=== PATIENT | male | born 1990 | race Caucasian/White ===

== ENCOUNTER 2022-04-18 17:40 | Emergency (ER) | payer MEDICAID, OTHER ==
[~2022-04-18] VITALS: Ht 165.1 cm; Wt 104.3 kg
[2022-04-18 19:36] VITALS: BP 117/76
[2022-04-18] MEDS ORDERED: FAMOTIDINE 20 MG TAB PO ONE (19:45)
[2022-04-18] MEDS ORDERED: KETOROLAC TROMETH 30 MG/ML 1ML VIAL IM ONE (19:45)
== END 2022-04-18 23:26 | disposition home or self-care (01) ==
LOC: ER 17:40
DX: S93.402A Sprain of unspecified ligament of left ankle, initial encounter (principal); W18.39XA Other fall on same level, initial encounter; Y93.89 Activity, other specified; Y92.89 Other specified places as the place of occurrence of the external cause; Y99.8 Other external cause status
CPT/HCPCS: 73610; 99283; J1885

== ENCOUNTER 2023-02-10 09:17 | Emergency (ER) | payer SELFPAY ==
[~2023-02-10] VITALS: Ht 165.1 cm; Wt 105.0 kg
[2023-02-10 09:45] LABS: Basophils # (auto) 0 10 ^3/uL (0-0.2); Basophils % (auto) 0.2 % (0.0-2.0); Eosinophils # (auto) 0.1 10 ^3/uL (0-0.8); Eosinophils % (auto) 0.9 % (0.0-7.0); Hematocrit 47.1 % (41.0-53.0); Lymphocytes # (auto) 1.1 10 ^3/uL (0.4-5.4); Lymphocytes % (auto) 15.5 % (10.0-50.0); Mean Corpuscular Hemoglobin 27.8 pg (28.0-32.0); Mean Corpuscular Hgb Conc. 33.9 g/dL (32.0-36.0); Mean Corpuscular Volume 81.9 fL (80.0-100.0); Monocytes # (auto) 0.7 10 ^3/uL (0-1.3); Monocytes % (auto) 10.1 % (0.0-12.0); Neutrophils # (auto) 5.3 10 ^3/uL (1.6-8.6); Neutrophils % (auto) 73.3 % (37.0-80.0); Nucleated Red Blood Cells % 0.3 %; Red Blood Cells 5.75 10^6/uL (4.5-5.90); Red Cell Distribution Width 13.4 % (11.8-14.3); White Blood Cell 7.3 10^3/uL (4.4-10.8)
[2023-02-10] MEDS ORDERED: ASPirin 81 mg TAB PO ONE (09:45)
[2023-02-10 09:56] LABS: Urine Bacteria NONE SEEN /hpf (None Seen); Urine Blood Negative /uL (Negative); Urine Specific Gravity 1.007 (1.001-1.035); Urine WBC <1 /hpf (0 - 3)
[2023-02-10 10:50] LABS: Albumin 3.9 g/dL (3.4-5.0); BUN/Creatinine Ratio 16.2; Bilirubin, Total 0.4 mg/dL (0.2-1.0); Calcium 8.7 mg/dL (8.5-10.1); Potassium 4.2 mmol/L (3.5-5.1); Total Protein 7.1 g/dL (6.4-8.2)
[2023-02-10 11:20] VITALS: BP 132/91
== END 2023-02-10 11:23 | disposition home or self-care (01) ==
LOC: ER 09:17
DX: R07.89 Other chest pain (principal); J45.909 Unspecified asthma, uncomplicated; R51.9 Headache, unspecified; K21.9 Gastro-esophageal reflux disease without esophagitis; Z98.890 Other specified postprocedural states
CPT/HCPCS: 36415; 70450; 71045; 80053; 81001; 84484; 85025; 93005